=== PATIENT | female | born 1985 | race Caucasian/White ===

== ENCOUNTER 2021-12-28 12:18 | Emergency (ER) | payer MEDICAID ==
[~2021-12-28] VITALS: Ht 167.6 cm; Wt 82.0 kg
[2021-12-28 13:05] LABS: BASOPHILS % (AUTO) 0.6 % (0-1); EOSINOPHILS # (AUTO) 0.1 X10'3 (0-0.9); EOSINOPHILS % (AUTO) 2.1 % (0-6); HEMATOCRIT 34.7 % (35.0-45.0); HEMOGLOBIN 11.1 g/dl (12.0-16.0); LYMPHOCYTES # (AUTO) 3.2 X10'3 (1.1-4.8); LYMPHOCYTES % (AUTO) 44.8 % (21-51); MEAN CORPUSCULAR HEMOGLOBIN 25.6 PG (27.0-31.0); MEAN PLATELET VOLUME 8.6 FL (7.4-10.4); MONOCYTES # (AUTO) 0.4 X10'3 (0-0.9); MONOCYTES % (AUTO) 6.2 % (2-12); NEUTROPHILS # (AUTO) 3.3 X10'3 (1.8-7.7); NEUTROPHILS % (AUTO) 46.3 % (42-75); PLATELET COUNT 266 X10'3 (140-440); RED BLOOD COUNT 4.34 X10'6 (4.20-5.60); RED CELL DISTRIBUTION WIDTH 20.1 % (11.5-14.5); WHITE BLOOD COUNT 7.1 X10'3 (4.5-11.0)
[2021-12-28 13:17] LABS: APTT 27 SECONDS (22-32)
[2021-12-28 13:18] LABS: ALANINE AMINOTRANSFERASE 33 U/L (12-78); ALBUMIN 4.2 G/DL (3.4-5.0); ALKALINE PHOSPHATASE 67 IU/L (46-116); ANION GAP 9 (8-16); ASPARTATE AMINO TRANSFERASE 19 U/L (10-37); BILIRUBIN,TOTAL 0.2 MG/DL (0.1-1.0); BLOOD UREA NITROGEN 13 MG/DL (7-18); BUN/CREATININE RATIO 15.7 (6.6-38.0); CHLORIDE 101 MMOL/L (99-107); CREATININE 0.83 MG/DL (0.40-0.90); GLUCOSE 102 MG/DL (70-104); POTASSIUM 3.8 MMOL/L (3.5-5.1); SODIUM 138 MMOL/L (135-145); TOTAL CARBON DIOXIDE 27.9 MMOL/L (24-32); TOTAL PROTEIN 8.4 G/DL (6.4-8.2); eGFR 77 ML/MIN
[2021-12-28 13:21] LABS: ANISOCYTOSIS 3+; ELLIPTOCYTES FEW; PLATELET ESTIMATE NORMAL
[2021-12-28] MEDS ORDERED: LEVO150T8 PO (14:04)
[2021-12-28] MEDS ORDERED: metoclopramide 5 mg/ml inj IV ONE (14:25)
[2021-12-28] MEDS ORDERED: normal saline 1000ML IV soln IVB ONE (14:25)
[2021-12-28] MEDS ORDERED: diphenhydrAMINE 50 mg/ml inj IV ONE (14:25)
--- NOTE | 2021-12-28 15:25 | NUR ---
Returned from MRI.
[2021-12-28 15:26] VITALS: BP 115/76
--- NOTE | 2021-12-28 16:28 | NUR ---
Pt given and understands d/c instructions. IV d/c'd, catheter was intact. Ambulatory with a steady gait.
== END 2021-12-28 16:30 | disposition home or self-care (01) ==
LOC: ER 12:18
DX: R53.1 Weakness (principal); E03.9 Hypothyroidism, unspecified; R42 Dizziness and giddiness; Z79.899 Other long term (current) drug therapy
CPT/HCPCS: 36415; 70450; 70544; 70551; 71045; 80053; 84443; 85008; 85025; 85610; 85730; 93005; 96374; 96375; 99285; J1200; J2765; J7030